=== PATIENT | male | born 1945 | race Two or more races ===

== ENCOUNTER 2017-06-01 09:32 | Inpatient (IN) | payer OTHER, BC ==
[2017-05-29 12:19] VITALS: BMI 32.3
--- NOTE | 2017-06-01 07:44 | HP ---
Admitting History and Physical - Admission Chief Complaint: Left knee osteoarthritis x years History of Present Illness: 71 year old male presents in regard to his left knee. Longstanding history of left knee osteoarthritis. Patient complains of pain, limited ROM, difficulty ambulating and difficulty with ADLs. Patient has failed conservative treatment including PO medication, activity modification, injections and exercise program. At this point patient would like to proceed with a left total knee arthroplasty. History Source: Patient - Past Surgical History Additional Past Surgical History: See written H&P - Smoking History Smoking history: Never smoked Have you smoked in the past 12 months: No - Alcohol/Substance Use Hx Alcohol Use: Yes (SOCIALLY) Home Medications - Allergies Allergies/Adverse Reactions: Allergies Allergy/AdvReac Type Severity Reaction Status Date / Time No Known Drug Allergies Allergy Verified 05/29/17 12:11 - Home Medications Home Medications: Ambulatory Orders NK [No Known Home Medication] 05/29/17 Review of Systems - Review of Systems Musculoskeletal: reports: Crepitus (Left Knee), Decreased ROM (Left Knee), Joint Pain (Left Knee), Joint Swelling (Left Knee) Physical Examination Constitutional: Yes: Well Nourished, No Distress Eyes: Yes: Conjunctiva Clear HENT: Yes: Atraumatic, Normocephalic Neck: Yes: Supple Cardiovascular: Yes: Regular Rate and Rhythm Respiratory: Yes: Regular Gastrointestinal: Yes: Soft ...Rectal Exam: Yes: Deferred Musculoskeletal: Yes: Joint Stiffness (Left Knee), Joint Swelling (Left Knee) Assessment/Plan 71 year old male with longstanding left knee osteoarthritis. Patient complains of pain, limited ROM, difficulty ambulating and difficulty completing ADLs. Patient has failed conservative treatment options. Proceed with a left total knee arthroplasty.
[~2017-06-01 09:32] MED LIST: PANTOPRAZOLE 40 MG TABLET (FP) PO ONE
[2017-06-01] MEDS ORDERED: oxyCODONE HCL 10 MG SUSTAINED ACTING TABLET PO ONE (09:55)
[2017-06-01] MEDS ORDERED: GABAPENTIN 300 MG CAPSULE (FP) PO ONE (09:55)
[2017-06-01] MEDS ORDERED: TRANEXAMIC ACID 1000 MG/10 ML VIAL IVPUSH ONE (09:55)
[2017-06-01] MEDS ORDERED: ROPIVICAINE 0.2%/MORPH PF/KETOROLAC - 51ML DISP.SYRINGE IA ONE ×2 (09:55→11:07)
[2017-06-01] MEDS ORDERED: CELECOXIB 200 MG CAPSULE PO ONE (09:55)
[2017-06-01] MEDS ORDERED: CEFAZOLIN 2 GM in DEXTROSE 5%-WATER - 50 ML IVPB ONE (09:55)
[2017-06-01] MEDS ORDERED: PANTOPRAZOLE 40 MG TABLET (FP) ONE (10:00)
[2017-06-01] MEDS ORDERED: DEXAMETHASONE SOD PHOSPHATE/PF 10 MG/ML SDV ONE (10:19)
[2017-06-01] MEDS ORDERED: MIDAZOLAM HCL 2 MG/2 ML SINGLE DOSE VIAL ONE ×2 (10:19→12:05)
[2017-06-01] MEDS ORDERED: VANCOMYCIN 1,000 MG VIAL (RESTRICTED TO ID ONLY) ONE (11:07)
[2017-06-01] MEDS ORDERED: ceFAZolin SODIUM 1 GM VIAL ONE ×2 (11:07→11:34)
[2017-06-01] MEDS ORDERED: TRANEXAMIC ACID 1000 MG/10 ML VIAL ONE ×2 (11:07→11:34)
[2017-06-01] MEDS ORDERED: BUPIVACAINE HCL/PF 0.5% (5MG/ML) 10 ML VIAL ONE (11:33)
[2017-06-01] MEDS ORDERED: ONDANSETRON 4 MG/2 ML VIAL ONE (11:34)
[2017-06-01] MEDS ORDERED: DEXAMETHASONE SOD PHOSPHATE 4 MG/1 ML VIAL ONE (11:34)
[2017-06-01] MEDS ORDERED: oxyCODONE HCL 5 MG TABLET PO PRN (14:35)
[2017-06-01] MEDS ORDERED: ONDANSETRON 4 MG/2 ML VIAL IVPUSH PRN (14:35)
[2017-06-01] MEDS ORDERED: KETOROLAC TROMETHAMINE 30 MG/1 ML VIAL ONE (14:49)
[2017-06-01] MEDS ORDERED: traMADol HCL 50 MG TABLET ONE (14:49)
[2017-06-01] MEDS ORDERED: ACETAMINOPHEN INJECTION 100 ML IVPB ONE (14:50)
[2017-06-01] MEDS ORDERED: MAGNESIUM HYDROX 2400MG/30ML ORAL SUSPENSION 30 ML CUP PO PRN (15:17)
[2017-06-01] MEDS ORDERED: ONDANSETRON 4 MG/2 ML VIAL IVPB PRN (15:17)
[2017-06-01] MEDS ORDERED: MAG HYDROX/AL HYDROX/SIMETH 30 ML UNIT-DOSE CUP PO PRN (15:17)
--- NOTE | 2017-06-01 15:17 | OP ---
Operative Note - Note: Operative Date: 06/01/17 Pre-Operative Diagnosis: left knee OA Operation: left TKA Surgeon: Flex Cooley Permit Specialist: Lashae Rios Anesthesia: Spinal Estimated Blood Loss (mls): 150
[2017-06-01] MEDS ORDERED: LACTATED RINGERS SOLUTION 1,000 ML IV SCH (15:30)
[2017-06-01] MEDS: ACETAMINOPHEN 1000 MG/100 ML VIAL (NON FORMULARY) IVPB ONE ×2 (15:30→16:49)
[2017-06-01] MEDS: traMADol HCL 50 MG TABLET PO SCH ×3 (15:31→22:23)
[2017-06-01] MEDS: KETOROLAC TROMETHAMINE 30 MG/1 ML VIAL IVPUSH SCH ×3 (15:31→22:24)
[2017-06-01] MEDS: LACTATED RINGERS SOLUTION 1,000 ML IV SCH (16:49)
[2017-06-01] MEDS ORDERED: CEFAZOLIN 2 GM in DEXTROSE 5%-WATER - 50 ML IVPB SCH (18:00)
[2017-06-01] MEDS ORDERED: CEFAZOLIN (PRE-DOCKED) 50 ML IVPB SCH (18:00)
[2017-06-01] MEDS: CEFAZOLIN 2 GM/D5W 50 ML IVPB SCH (18:00)
[2017-06-01] MEDS: ACETAMINOPHEN 325 MG TABLET (FP) PO SCH (18:01)
[2017-06-01] MEDS: GABAPENTIN 300 MG CAPSULE (FP) PO SCH (22:23)
[2017-06-01] MEDS: SENNOSIDES/DOCUSATE COMBO (SENNA PLUS) TABLET (UD) PO SCH (22:23)
[2017-06-01] MEDS: ASCORBIC ACID 500 MG TABLET (FP) PO SCH (22:23)
[2017-06-02] MEDS: ACETAMINOPHEN 325 MG TABLET (FP) PO SCH ×5 (00:01→23:58)
[2017-06-02] MEDS: KETOROLAC TROMETHAMINE 30 MG/1 ML VIAL IVPUSH SCH ×2 (03:35→09:24)
[2017-06-02] MEDS: traMADol HCL 50 MG TABLET PO SCH ×4 (03:36→21:09)
[2017-06-02] MEDS: CEFAZOLIN 2 GM/D5W 50 ML IVPB SCH (03:36)
[2017-06-02] MEDS: ASPIRIN 325 MG TABLET PO SCH (08:20)
[2017-06-02 08:42] LABS: MCH 31.7 pg (25.7-33.7); MCHC 33.7 g/dl (32.0-35.9); MEAN CELL VOLUME 94.1 fl (80-96); MEAN PLT VOLUME 9.5 fl (7.5-11.1); PLATELET COUNT 167 K/MM3 (134-434); RDW 12.9 % (11.9-15.9); WHITE BLOOD COUNT 11.5 K/mm3 (4.0-10.8)
[2017-06-02 09:10] LABS: ANION GAP 7 (8-16); CALCIUM 8.7 mg/dl (8.4-10.2); CO2 24 mmol/L (22-28); GLUCOSE,RANDOM 132 mg/dl (74-106)
--- NOTE | 2017-06-02 09:21 | PN ---
Progress Note (short form) - Note Progress Note: ANESTHESIOLOGY POST OP 71 yo male POD #1 s/p Left TKA. Patient doing well. Reports no pain. He is actively participating in PT. Tolerating PO. Plans to d/c to rehab facility this weekend. Continue current care.
[2017-06-02] MEDS: CELECOXIB 200 MG CAPSULE PO SCH (09:24)
[2017-06-02] MEDS: GABAPENTIN 300 MG CAPSULE (FP) PO SCH ×2 (09:24→21:09)
[2017-06-02] MEDS: MULTIVITAMINS (DAILY MVI) TABLET (FP) PO SCH (09:25)
[2017-06-02] MEDS: ASCORBIC ACID 500 MG TABLET (FP) PO SCH ×2 (09:25→21:09)
[2017-06-02] MEDS: PANTOPRAZOLE 40 MG TABLET (FP) PO SCH (09:26)
[2017-06-02] MEDS: SENNOSIDES/DOCUSATE COMBO (SENNA PLUS) TABLET (UD) PO SCH ×2 (09:26→21:09)
[2017-06-02] MEDS: LACTATED RINGERS SOLUTION 1,000 ML IV SCH (14:50)
--- NOTE | 2017-06-02 19:35 | PN ---
Progress Note (short form) - Note Progress Note: D/C to rehab Monday when bed available. I will be out of town this weekend and not coming in to round - I explained this to the patient and he understood. All discharge and medication orders are in. Call me on my cell phone at [phone] if there are any issues over the weekend. Otherwise pt is cleared to go. If there are any medical concerns please call me and also place a hospitalist consult. Thanks - MARIA G
--- NOTE | 2017-06-02 19:35 | PN ---
Progress Note (short form) - Note Progress Note: Pt seen and examined. Doing very well. AVSS Selected Entries 06/02/17 06/02/17 06/02/17 06:22 07:30 14:20 Temperature 98.0 F 97.8 F Pulse Rate 67 59 L Respiratory 20 18 Rate Blood Pressure 103/54 119/55 O2 Sat by Pulse 96 98 Oximetry (%) Oxygen Delivery Room Air Room Air Method Laboratory Tests 06/02/17 06/02/17 07:30 07:30 WBC 11.5 H Hgb 14.7 Hct 43.7 Plt Count 167 Sodium 135 L Potassium 4.5 Chloride 104 Carbon Dioxide 24 Anion Gap 7 L BUN 20 H Creatinine 1.0 Random Glucose 132 H Calcium 8.7 Gen: NAD LLE: c/d/i, NVID A/P 71yo male POD#1 s/p L TKA 1. PT/OOB - WBAT LLE 2. D/C to rehab Monday when bed available. I will be out of town this weekend and not coming in to round - I explained this to the patient and he understood. All discharge and medication orders are in. Call me on my cell phone at if there are any issues over the weekend. Otherwise pt is cleared to go. If there are any medical concerns please call me and also place a hospitalist consult. Thanks - MARIA G
--- NOTE | 2017-06-02 19:36 | DS ---
Physical Examination Vital Signs: Vital Signs Temperature 97.8 F 06/02/17 14:20 Pulse Rate 59 L 06/02/17 14:20 Respiratory Rate 18 06/02/17 14:20 Blood Pressure 119/55 06/02/17 14:20 O2 Sat by Pulse Oximetry (%) 98 06/02/17 14:20 Labs: CBC, BMP 06/02/17 07:30 06/02/17 07:30 Discharge Summary Reason For Visit: OSTEOARTHRITIS LEFT KNEE Current Active Problems Osteoarthritis of left knee (Acute) Procedures: Principal: left TKA Hospital Course: Admitted for elective surgery. Procedure performed without complications. Pt received postoperative antibiotic prophylaxis and DVT ppx. Ambulated with physical therapy. Stable for discharge to rehab/SNF with outpatient followup in 10-14 days. Condition: Stable - Instructions Diet, Activity, Other Instructions: Dr. Cooley - Knee Replacement Instructions Keep the Aquacel dressing on until removed by Dr. Cooley in 10-14 days - it is antibacterial and waterproof and you can shower with it on. Call the office for a follow-up appointment with Dr. Cooley in 10-14 days. Take one Aspirin 325mg daily for 6 weeks to prevent blood clots in your legs. Take one Pantoprazole 40mg daily for 6 weeks to protect against heartburn and ulcers. Take Celebrex 200mg once daily for 30 days to reduce swelling and inflammation. Take a multivitamin, extra vitamin c supplement, and stool softener daily. For pain: The nerve block injection performed before surgery lasts for about 3 days. When this wears off Monday the pain will increase. *Mild pain (1-3/10): Take 1 Tramadol tablet every 4 hours as needed. Moderate pain (4-6/10): Take 1 Tramadol tablet and 1 Percocet tablet every 4 hours as needed. Severe pain (7-10/10): Take 1 Tramadol tablet and 2 Percocet tablets every 4 hours as needed. Activity: You can put as much weight on the operative leg as you want. Right after you get home, there will be a physical therapist coming to your house to help you walk around and bend/straighten your knee. After your follow-up appointment, you will be sent for more intensive outpatient physical therapy which will include machines and equipment that the home therapist cannot bring to your house. Always use a walker or cane for balance and to prevent falls. Disposition: [facility] - Home Medications Comprehensive Discharge Medication List: Ambulatory Orders Ascorbic Acid [Vitamin C -] 500 mg PO BID #90 tablet 06/02/17 Aspirin [ASA -] 325 mg PO DAILY@0800 #40 tablet 06/02/17 Celecoxib [CeleBREX -] 200 mg PO DAILY #30 tab 06/02/17 Multivitamins [Multivit ([facility] Formulary)] 1 tab PO DAILY #90 tab 06/02/17 Oxycodone HCl/Acetaminophen [Percocet 5-325 mg Tablet] 1 - 2 tab PO Q4H PRN #60 tablet MDD 8 06/02/17 Pantoprazole Sodium [Protonix -] 40 mg PO DAILY #40 tab 06/02/17 Sennosides/Docusate Sodium [Pericolace -] 2 tablet PO BID tablet 06/02/17 Tramadol HCl [Ultram -] 50 mg PO Q4H PRN #90 tablet MDD 6 06/02/17
[2017-06-03] MEDS: traMADol HCL 50 MG TABLET PO SCH ×4 (02:46→21:44)
[2017-06-03] MEDS: ACETAMINOPHEN 325 MG TABLET (FP) PO SCH ×4 (06:19→23:47)
[2017-06-03 07:35] LABS: MCH 32.4 pg (25.7-33.7); MCHC 34.3 g/dl (32.0-35.9); MEAN CELL VOLUME 94.6 fl (80-96); MEAN PLT VOLUME 8.9 fl (7.5-11.1); PLATELET COUNT 135 K/MM3 (134-434); RDW 13.2 % (11.9-15.9); WHITE BLOOD COUNT 7.5 K/mm3 (4.0-10.8)
[2017-06-03 08:02] LABS: ANION GAP 3 (8-16); CALCIUM 8.4 mg/dl (8.4-10.2); CO2 28 mmol/L (22-28); GLUCOSE,RANDOM 125 mg/dl (74-106)
[2017-06-03] MEDS: ASPIRIN 325 MG TABLET PO SCH (08:10)
[2017-06-03] MEDS: SENNOSIDES/DOCUSATE COMBO (SENNA PLUS) TABLET (UD) PO SCH ×2 (09:36→21:45)
[2017-06-03] MEDS: PANTOPRAZOLE 40 MG TABLET (FP) PO SCH (09:37)
[2017-06-03] MEDS: GABAPENTIN 300 MG CAPSULE (FP) PO SCH ×3 (09:37→21:49)
[2017-06-03] MEDS: MULTIVITAMINS (DAILY MVI) TABLET (FP) PO SCH (09:37)
[2017-06-03] MEDS: ASCORBIC ACID 500 MG TABLET (FP) PO SCH ×2 (09:37→21:45)
[2017-06-03] MEDS: CELECOXIB 200 MG CAPSULE PO SCH (09:38)
[2017-06-03 21:47] VITALS: TEMP 98.7
[2017-06-03] MEDS: oxyCODONE HCL 5 MG TABLET PO PRN (23:46)
[2017-06-04] MEDS: traMADol HCL 50 MG TABLET PO SCH ×2 (03:30→09:24)
[2017-06-04 06:24] VITALS: BP 109/63; PULSE 77
[2017-06-04] MEDS: oxyCODONE HCL 5 MG TABLET PO PRN (06:44)
[2017-06-04] MEDS: ACETAMINOPHEN 325 MG TABLET (FP) PO SCH (06:45)
[2017-06-04] MEDS: PANTOPRAZOLE 40 MG TABLET (FP) PO SCH (09:23)
[2017-06-04] MEDS: ASPIRIN 325 MG TABLET PO SCH (09:23)
[2017-06-04] MEDS: MULTIVITAMINS (DAILY MVI) TABLET (FP) PO SCH (09:23)
[2017-06-04] MEDS: SENNOSIDES/DOCUSATE COMBO (SENNA PLUS) TABLET (UD) PO SCH (09:23)
[2017-06-04] MEDS: ASCORBIC ACID 500 MG TABLET (FP) PO SCH (09:23)
[2017-06-04] MEDS: GABAPENTIN 300 MG CAPSULE (FP) PO SCH (09:24)
[2017-06-04] MEDS: LACTATED RINGERS SOLUTION 1,000 ML IV SCH (09:24)
[2017-06-04] MEDS: CELECOXIB 200 MG CAPSULE PO SCH (09:25)
--- NOTE | 2017-06-05 14:04 | PATH ---
Surgical Pathology Report Patient Name: KAREN GRIFFITHS Med. Rec. #: [id number] /Age/Gender: 1945 (Age: 71) / M Account: [id number] Location: [facility] Taken: 06/01/2017 Received: 06/02/2017 Reported: 06/05/2017 Physicians: Flex Cooley M.D. Specimen(s) Received BONE LEFT KNEE Clinical History Left knee osteoarthritis Final Diagnosis BONE AND SOFT TISSUE, LEFT KNEE, REPLACEMENT: DEGENERATIVE JOINT DISEASE. Electronically Signed Homer Coello M.D. Gross Description The specimen is received in formalin, labeled "bone left knee" and consists of multiple irregular portions of bone from a knee joint admixed with irregular portions of mares-yellow adipose tissue, synovial tissue and fibrocartilage. The specimen measures 10.0 x 8.5 x 1.8 cm. in aggregate. The tibial plateau and portions of the femoral condyles are identified. They show mares-kaur to light yellow eroded and granular articular surfaces. The cut surfaces are light yellow and show hard trabecular bone. Front End Assistant sections are submitted in one cassette after decalcification. AF/06/02/2017 final/06/02/2017
== END 2017-06-04 11:10 | DRG 470 ==
LOC: FM/S 09:32
PROVIDERS: ADMIT Student in an Organized Health Care Education/Training Program; ATTEND Student in an Organized Health Care Education/Training Program
PROC: 0SRD0J9 Replacement of Left Knee Joint with Synthetic Substitute, Cemented, Open Approach (ICD-10-PCS; principal; 2017-06-01 12:19)
DX: M17.12 Unilateral primary osteoarthritis, left knee (principal); H91.8X9 Other specified hearing loss, unspecified ear
CPT/HCPCS: 36415; 73560-TC-LT; 80048; 85027; 88304-TC; 88311-TC; 94010; 94760; 97010-GP; 97116-GP; 97161-GP

== ENCOUNTER 2020-06-08 06:09 | Inpatient (IN) | payer OTHER, BC ==
[2020-06-03 13:21] VITALS: BMI 32.3
[~2020-06-08 06:09] MED LIST changes: +CEFAZOLIN 2 GM/D5W 2 GM/50 ML ML IVPB ONE; +CELECOXIB 200 MG CAPSULE PO ONE; -PANTOPRAZOLE 40 MG TABLET (FP) PO ONE; +PANTOPRAZOLE 40 MG TABLET PO ONE; +TRANEXAMIC ACID 1000 MG/10 ML VIAL IVPUSH ONE; +oxyCODONE HCL 10 MG SUSTAINED ACTING TABLET PO ONE
[2020-06-08] MEDS ORDERED: TRANEXAMIC ACID 1000 MG/10 ML VIAL ONE ×3 (06:55→12:23)
[2020-06-08] MEDS ORDERED: ceFAZolin SODIUM 1 GM VIAL ONE ×2 (06:55→09:39)
[2020-06-08] MEDS ORDERED: VANCOMYCIN 1,000 MG VIAL (RESTRICTED TO ID ONLY) ONE (06:55)
[2020-06-08] MEDS ORDERED: MIDAZOLAM HCL 2 MG/2 ML SINGLE DOSE VIAL ONE (07:23)
[2020-06-08] MEDS ORDERED: oxyCODONE HCL 10 MG SUSTAINED ACTING TABLET ONE (07:24)
[2020-06-08] MEDS ORDERED: SODIUM CHLORIDE 0.9% P/F 10 ML VIAL IJ ONE (07:24)
[2020-06-08] MEDS ORDERED: PANTOPRAZOLE 40 MG TABLET ONE (07:24)
[2020-06-08] MEDS ORDERED: BUPIVACAINE LIPOSOME/PF (EXPAREL) 266 MG/20 ML VIAL ONE (07:24)
[2020-06-08] MEDS ORDERED: CELECOXIB 200 MG CAPSULE ONE (07:25)
--- NOTE | 2020-06-08 07:50 | HP ---
Admitting History and Physical - Admission Chief Complaint: Right knee osteoarthritis x years History of Present Illness: 74 year old male presents in regard to their right knee. Long-standing history of right knee osteoarthritis. Patient complains of pain, limited range of motion, difficulty ambulating, and difficulty with activities of daily living. Patient has failed conservative treatment options including PO medications, activity modification, injections, and exercise programs. Radiographs revealed severe osteoarthritis of the right knee joint. As the patient has failed all conservative treatment measures, the patient chose to proceed with surgical intervention, right total knee arthroplasty MAKOplasty. History Source: Patient - Past Medical History Cardiovascular: Yes: CHF (Systolic HF, EF 27%), HTN Renal/: Yes: BPH Musculoskeletal: Yes: Osteoarthritis - Past Surgical History Additional Past Surgical History: See written history and physical. right ear surgery x 2 right hand surgery left TKR 2017 - Smoking History Smoking history: Current every day smoker Have you smoked in the past 12 months: Yes Aproximately how many cigarettes per day: 3 - Alcohol/Substance Use Hx Alcohol Use: Yes (SOCIALLY-HAS BEEN IN DR AND) Home Medications - Allergies Allergies/Adverse Reactions: Allergies Allergy/AdvReac Type Severity Reaction Status Date / Time No Known Drug Allergies Allergy Verified 06/03/20 12:54 - Home Medications Home Medications: Ambulatory Orders Entresto 24 mg-26 mg Tablet 1 tab PO BID 06/03/20 Furosemide 40 mg PO DAILY 06/03/20 Metoprolol Succinate [Toprol Xl] 100 mg PO BID 06/03/20 Review of Systems - Review of Systems Musculoskeletal: reports: Crepitus (right knee), Decreased ROM (right knee), Joint Pain (right kne), Joint Swelling (right knee) Physical Examination Vital Signs: Vital Signs Temperature 97.7 F 06/08/20 07:20 Pulse Rate 41 L 06/08/20 07:20 Respiratory Rate 15 06/08/20 07:20 Blood Pressure 132/76 06/08/20 07:20 O2 Sat by Pulse Oximetry (%) 97 06/08/20 07:20 Constitutional: Yes: Well Nourished Eyes: Yes: Conjunctiva Clear HENT: Yes: Atraumatic Neck: Yes: Supple Cardiovascular: Yes: Regular Rate and Rhythm Respiratory: Yes: Regular Gastrointestinal: Yes: Soft ...Rectal Exam: Yes: Deferred Musculoskeletal: Yes: Joint Stiffness (right knee), Joint Swelling (right knee), Other (Limited ROM right knee) Assessment/Plan 74 year old male presents in regard to their right knee. Long-standing history of right knee osteoarthritis. Patient complains of pain, limited range of motion, difficulty ambulating, and difficulty with activities of daily living. Patient has failed conservative treatment options including PO medications, activity modification, injections, and exercise programs. Radiographs revealed severe osteoarthritis of the right knee joint. As the patient has failed all conservative treatment measures, the patient chose to proceed with surgical intervention, right total knee arthroplasty Pros, cons, risks, benefits, and alternatives of a right total knee arthroplasty MAKOplasty were discussed with the patient at length. Patient confirms their understanding and consents to proceed with a right total knee arthroplasty MAKOplasty
[2020-06-08] MEDS ORDERED: PROPOFOL 20 ML ONE ×2 (09:27→11:43)
[2020-06-08] MEDS ORDERED: ePHEDrine SULFATE 50 MG/1 ML AMPULE ONE (09:36)
[2020-06-08] MEDS ORDERED: DEXAMETHASONE SOD PHOSPHATE 4 MG/1 ML VIAL ONE (09:57)
[2020-06-08] MEDS ORDERED: ONDANSETRON 4 MG/2 ML VIAL ONE (09:57)
[2020-06-08] MEDS ORDERED: BUPIVICAINE 0.25%/MORPH PF/KETOROLAC - 51ML DISP.SYRINGE IA ONE ×2 (11:28→12:06)
[2020-06-08] MEDS ORDERED: SUCCINYLCHOLINE CHLORIDE 200 MG/10 ML SYRINGE ONE (11:43)
[2020-06-08] MEDS ORDERED: TRANEXAMIC ACID 1000 MG/10 ML VIAL IVPUSH ONE (11:54)
[2020-06-08] MEDS ORDERED: VANCOMYCIN 1,000 MG VIAL (RESTRICTED TO ID ONLY) IVPB ONE (12:05)
[2020-06-08] MEDS ORDERED: ONDANSETRON 4 MG/2 ML VIAL IVPUSH PRN ×2 (13:03→13:54)
[2020-06-08] MEDS ORDERED: oxyCODONE HCL 5 MG TABLET PO PRN ×2 (13:03)
--- NOTE | 2020-06-08 13:49 | OP ---
Operative Note - Note: Operative Date: 06/08/20 Pre-Operative Diagnosis: Right knee OA Operation: Right SHARON TKA Post-Operative Diagnosis: Same as Pre-op Surgeon: Flex Cooley Welding Machine Operator Friction: Lashae Rios Anesthesia: Spinal Estimated Blood Loss (mls): 150
[2020-06-08] MEDS ORDERED: MAGNESIUM HYDROX 2400MG/30ML ORAL SUSPENSION 30 ML CUP PO PRN (13:54)
[2020-06-08] MEDS ORDERED: MAG HYDROX/AL HYDROX/SIMETH 30 ML UNIT-DOSE CUP PO PRN (13:54)
[2020-06-08] MEDS: KETOROLAC TROMETHAMINE 30 MG/1 ML VIAL IVPUSH SCH ×2 (14:00→20:14)
[2020-06-08] MEDS ORDERED: LACTATED RINGERS SOLUTION 1,000 ML IV SCH (14:00)
[2020-06-08] MEDS ORDERED: KETOROLAC TROMETHAMINE 30 MG/1 ML VIAL ONE (14:01)
[2020-06-08] MEDS ORDERED: ACETAMINOPHEN INJECTION 100 ML IVPB ONE (14:02)
[2020-06-08] MEDS ORDERED: traMADol HCL 50 MG TABLET ONE (14:02)
[2020-06-08] MEDS: ACETAMINOPHEN 1000 MG/100 ML VIAL (NON FORMULARY) IVPB ONE (14:04)
[2020-06-08] MEDS: traMADol HCL 50 MG TABLET PO SCH ×2 (14:05→20:14)
--- NOTE | 2020-06-08 14:26 | SPEC ---
DATE OF OPERATION: 06/08/2020 PREOPERATIVE DIAGNOSIS: Right knee osteoarthritis. POSTOPERATIVE DIAGNOSIS: Right knee osteoarthritis. PROCEDURE: Right total knee replacement with MAKOplasty robotic navigation. ATTENDING: Nickolas Montero MD [employer] ARTILLERY: POP Patel ANESTHESIA: Spinal plus sedation. ESTIMATED BLOOD LOSS: 150 mL. COMPLICATIONS: None. DISPOSITION: The patient was transferred to the PACU in stable condition. IMPLANTS USED: James Triathlon size 5 femoral component, size 6 tibial component, 32-mm patellar component, 13-mm posterior stabilized polyethylene component. INDICATIONS: This is a 74-year-old male who is a long-time patient of [facility] who initially presented with bilateral knee osteoarthritis. This was treated conservatively until he had inadequate pain control and worsening ambulatory function. He underwent a left total knee replacement in 2017 and did very well with that. The right one continues to deteriorate and recently he decided to proceed with a knee replacement on the right side as well. The risks, benefits and alternatives to the procedure were explained to the patient in great detail and he elected to proceed with the surgery. DESCRIPTION: On the day of surgery, the patient was taken to the operating room and placed on the OR table. Spinal anesthesia was administered by the anesthesiologist. The patient was then positioned supine on the table and all bony prominences were padded. The knee was then prepped and draped in the usual sterile fashion and intravenous antibiotics were given for infection prophylaxis. A surgical time-out was then performed with the team, and the patients identity, procedure, side, availability of implants, and the administration of antibiotics was confirmed. With the knee flexed, a midline incision was made and carried down through the subcutaneous fat to the underlying retinaculum. A medial parapatellar arthrotomy was performed. This was followed by a subperiosteal dissection of the tissue off the proximal, medial tibia. A portion of fat pad was removed from under the patellar tendon, and a small portion of fat was excised off the distal supracondylar femur. Electrocautery and an Aqu[employer]ant[employer] bipolar sealing device were used to achieve hemostasis. The knee was then flexed further and the anterior horn of the lateral meniscus was released from the midline. Next, the anterior and posterior cruciate ligaments were transected. Grade 4 changes were noted diffusely throughout the knee. Femoral and tibial checkpoints were then placed in the appropriate location using a mallet. Two parallel bicortical self-drilling pins were placed in the tibial diaphysis after making stab incisions and bluntly dissecting down to bone. Two pins were then placed in the distal supracondylar femur. The [employer] navigation arrays were then attached to both the femoral and tibial pins and the lower extremity was then registered to the robotic navigation device using various joint movements, as well as inputting several dozen reference points. The knee was then taken through a full range of motion with a corrective force applied. Alignment in varus/valgus as well as flexion/extension and soft tissue balance was measured in various positions. The navigation device showed a numerical and graphic representation of the soft tissue balance. The components were repositioned virtually using the software until optimal soft tissue balance was achieved on screen. Once this was accomplished, the final plan was saved and sent to the robot. Self-retaining retractors were then placed at the joint line for exposure and protection of the collateral ligaments. The robot was brought into the sterile field and registered with the navigation device. The robotic arm with attached oscillating saw blade was then used to perform femoral and tibial bone cuts as per the saved software plan. The femoral box cut was made using the appropriately sized manual cutting guide. The knee was then irrigated. Trial components were placed and the knee was taken through a full range of motion to assess soft tissue balance and alignment. The range of motion was found to be excellent and the soft tissue balance was optimal and according to plan. The knee was then put into extension and the patella everted. The synovium around the patella was circumscribed with electrocautery. A caliper was used to measure the patellar thickness and a saw was then used to resect the patella at the chondro-osseous junction. The cut surface was then sized and drilled for the appropriate patellar button, with care taken to medialize it. A trial patella was then placed and the knee was again taken through a full range of motion. The knee was found to have both good balance and good patellar tracking. All of the components were removed except the tibial base plate. The appropriate instrumentation was used to drill and punch the proximal tibia for the keel of the final component. All bony surfaces were then cleaned with pulsatile lavage and dried. Bone cement was then prepared on the back table, and final components were cemented in place in the usual fashion. Extruded cement was removed. The polyethylene trial was placed, the knee was put into extension, and axial pressure was applied for compression while the cement hardened. The patellar button was similarly cemented into place. Once the cement had hardened, the knee was taken through a full range of motion to assess stability, balance, and patellar tracking. This was found to be optimal and the trial polyethylene was exchanged for the appropriately sized real implant. The wound was then thoroughly irrigated with normal saline. A 3-minute dilute Betadine lavage was performed. The knee was again irrigated using a pulsatile lavage device. A periarticular injection was used to locally infiltrate the capsular tissues surrounding the implant and prosthesis. Then No. 1 Polysorb and 0 VLoc 180 barbed sutures were used to close the arthrotomy. Then No. 1 Polysorb and 2-0 VLoc 90 sutures were used in the subcutaneous tissues. Then 4-0 undyed Vicryl and Dermabond skin adhesive was used to close the stab incisions made for the navigation pins. The skin was closed using both 3-0 VLoc 90 suture in a running subcuticular fashion and Dermabond skin adhesive. Once this was completed a sterile Aquacel dressing and compressive Yaw-wrap was applied. The patient was then awakened and taken to the PACU in stable condition. NICKOLAS MONTERO M.D. [id number]
[2020-06-08] MEDS ORDERED: DEXAMETHASONE SOD PHOSPHATE 10 MG/1 ML VIAL IVPB ONE (20:00)
[2020-06-08] MEDS: ACETAMINOPHEN 325 MG TABLET (FP) PO SCH (20:15)
[2020-06-08] MEDS: CEFAZOLIN 2 GM/D5W 2 GM/50 ML ML IVPB SCH (20:17)
[2020-06-08] MEDS: CELECOXIB 200 MG CAPSULE PO SCH (21:45)
[2020-06-08] MEDS: SACUBITRIL/VALSARTAN 24 MG-26 MG TABLET PO SCH (21:45)
[2020-06-08] MEDS: GABAPENTIN 300 MG CAPSULE PO SCH (21:45)
[2020-06-08] MEDS: SENNOSIDES/DOCUSATE COMBO (SENNA PLUS) TABLET (UD) PO SCH (21:45)
[2020-06-08] MEDS: ASCORBIC ACID 500 MG TABLET (FP) PO SCH (21:45)
[2020-06-09] MEDS: CEFAZOLIN 2 GM/D5W 2 GM/50 ML ML IVPB SCH ×2 (01:10→10:39)
[2020-06-09] MEDS: KETOROLAC TROMETHAMINE 30 MG/1 ML VIAL IVPUSH SCH ×2 (01:10→08:58)
[2020-06-09] MEDS: traMADol HCL 50 MG TABLET PO SCH ×4 (01:11→21:04)
[2020-06-09] MEDS: ACETAMINOPHEN 325 MG TABLET (FP) PO SCH ×6 (01:12→18:31)
[2020-06-09 08:00] LABS: HEMATOCRIT 39.9 % (35.4-49); HEMOGLOBIN 12.7 GM/dl (11.7-16.9); MCH 30.8 pg (25.7-33.7); MCHC 31.8 g/dl (32.0-35.9); MEAN PLT VOLUME 10.2 fl (7.5-11.1); PLATELET COUNT 177 K/MM3 (134-434); RBC 4.11 M/mm3 (4.00-5.60); RDW 13.6 % (11.9-15.9); WHITE BLOOD COUNT 10.7 K/mm3 (4.0-10.8)
[2020-06-09 08:07] LABS: CALCIUM 8.5 mg/dl (8.5-10); CREATININE 1.2 mg/dl (0.55-1.3); POTASSIUM 5.4 mmol/L (3.5-5.1)
[2020-06-09] MEDS: ASPIRIN 325 MG TABLET PO SCH (08:58)
[2020-06-09] MEDS: FUROSEMIDE 40 MG TABLET (FP) PO SCH (10:36)
[2020-06-09] MEDS: ASCORBIC ACID 500 MG TABLET (FP) PO SCH ×2 (10:36→21:05)
[2020-06-09] MEDS: MULTIVITAMINS (DAILY MVI) TABLET (FP) PO SCH (10:36)
[2020-06-09] MEDS: SENNOSIDES/DOCUSATE COMBO (SENNA PLUS) TABLET (UD) PO SCH ×2 (10:36→21:05)
[2020-06-09] MEDS: SACUBITRIL/VALSARTAN 24 MG-26 MG TABLET PO SCH ×2 (10:37→21:04)
[2020-06-09] MEDS: CELECOXIB 200 MG CAPSULE PO SCH ×2 (10:37→21:04)
[2020-06-09] MEDS: GABAPENTIN 300 MG CAPSULE PO SCH ×2 (10:37→21:04)
[2020-06-09] MEDS: PANTOPRAZOLE 40 MG TABLET PO SCH (10:40)
--- NOTE | 2020-06-09 12:58 | PN ---
Progress Note (short form) - Note Progress Note: 74M POD1 R TKR under spinal anesthetic with peripheral nerve blocks. Pt states that pain is well controlled and reports no anesthetic complications. AVSS. Continue current regimen.
[2020-06-09] MEDS: ACETAMINOPHEN 1000 MG/100 ML VIAL (NON FORMULARY) IVPB ONE (18:07)
--- NOTE | 2020-06-09 23:10 | PN ---
Progress Note (short form) - Note Progress Note: Pt seen and examined. Doing well. AVSS Selected Entries 06/09/20 22:00 Temperature 97.7 F Temperature Oral Source Pulse Rate 78 Respiratory 18 Rate Blood Pressure 101/44 L O2 Sat by Pulse 96 Oximetry (%) Laboratory Tests 06/09/20 06/09/20 07:10 07:10 WBC 10.7 Hgb 12.7 Hct 39.9 Plt Count 177 D Sodium 133 L Potassium 5.4 H Chloride 104 Carbon Dioxide 21 Anion Gap 8 BUN 25.0 H Creatinine 1.2 Est GFR (CKD-EPI)AfAm 68.15 Est GFR (CKD-EPI)NonAf 58.80 Random Glucose 153 H Calcium 8.5 Gen: NAD RLE: c/d/i, NVID A/P POD#1 s/p R SHARON TKA PT/OOB D/C planning to SNF/rehab
--- NOTE | 2020-06-09 23:16 | DS ---
Physical Examination Vital Signs: Vital Signs Temperature 97.7 F 06/09/20 22:00 Pulse Rate 78 06/09/20 22:00 Respiratory Rate 18 06/09/20 22:00 Blood Pressure 101/44 L 06/09/20 22:00 O2 Sat by Pulse Oximetry (%) 96 06/09/20 22:00 Labs: CBC, BMP 06/09/20 07:10 06/09/20 07:10 Discharge Summary Problems reviewed: Yes Reason For Visit: RIGHT KNEE OSTEOARTHRITIS Procedures: Principal: Right SHARON TKA Hospital Course: Admitted for elective surgery. Procedure performed without complications. Pt received postoperative antibiotic prophylaxis and DVT ppx. Ambulated with physical therapy. Stable for discharge to SNF with outpatient followup. Condition: Stable - Instructions Diet, Activity, Other Instructions: Dr. Coolye - Knee Replacement Instructions Keep the Aquacel dressing on until removed by Dr. Cooley in 2 weeks - it is antibacterial and waterproof and you can shower with it on. Call the office for a follow-up appointment with Dr. Cooley in 2 weeks. [phone] Take one Aspirin 325mg daily for 6 weeks to prevent blood clots in your legs. Take one Pantoprazole 40mg daily for 6 weeks to protect against heartburn and ulcers. Take Cephalexin (antibiotic) 3x/day for 10 days to help prevent skin infection. Take Celebrex 200mg daily for 30 days to reduce swelling and inflammation. Take a multivitamin, stool softener, and extra Vitamin C supplement daily. For pain: *Mild pain (1-3/10): Take 1 Tramadol tablet every 4 hours as needed. Moderate pain (4-6/10): Take 1 Tramadol tablet and 1 Percocet tablet every 4 hours as needed. Severe pain (7-10/10): Take 1 Tramadol tablet and 2 Percocet tablets every 4 hours as needed. Activity: You can put as much weight on the operative leg as you want. Right after you get home, there will be a physical therapist coming to your house to help you walk around and bend/straighten your knee. After your follow-up appointment, you will be sent for more intensive outpatient physical therapy which will include machines and equipment that the home thera pist cannot bring to your house. Always use a walker or cane for balance and to prevent falls. Expect to see swelling/bruising from the operative site all the way down to your toes. Wear the compression stocking on the operative side during the day to minimize how much swelling there is in your foot/ankle. Don't wear the stocking at night. You don't have to wear a stocking on the other side. [facility] - Home Medications Comprehensive Discharge Medication List: Ambulatory Orders Entresto 24 mg-26 mg Tablet 1 tab PO BID 06/03/20 Furosemide 40 mg PO DAILY 06/03/20 Metoprolol Succinate [Toprol Xl] 100 mg PO BID 06/03/20 Ascorbic Acid [Vitamin C -] 500 mg PO BID tablet 06/09/20 Aspirin [ASA -] 325 mg PO DAILY@0800 tablet 06/09/20 Celecoxib [CeleBREX -] 200 mg PO DAILY #30 capsule 06/09/20 Cephalexin Monohydrate [Keflex -] 500 mg PO TID #30 capsule 06/09/20 Multivitamins [Multivit ([facility] Formulary)] 1 tab PO DAILY tab 06/09/20 Oxycodone HCl/Acetaminophen [Percocet 5-325 mg Tablet] 1 - 2 tab PO Q4H PRN #60 tablet MDD 10 06/09/20 Pantoprazole Sodium [Protonix -] 40 mg PO DAILY #40 tablet.ec 06/09/20 Sennosides/Docusate Sodium [Pericolace -] 2 tablet PO BID tablet 06/09/20 traMADol HCL [Ultram -] 50 mg PO Q4H PRN #42 tablet MDD 6 06/09/20
[2020-06-10] MEDS: ACETAMINOPHEN 325 MG TABLET (FP) PO SCH ×4 (01:15→18:17)
[2020-06-10] MEDS: traMADol HCL 50 MG TABLET PO SCH ×4 (01:40→20:34)
[2020-06-10 08:15] LABS: CALCIUM 8.5 mg/dl (8.5-10); CREATININE 1.2 mg/dl (0.55-1.3); POTASSIUM 4.9 mmol/L (3.5-5.1)
[2020-06-10 08:19] LABS: HEMATOCRIT 35.3 % (35.4-49); HEMOGLOBIN 11.9 GM/dl (11.7-16.9); MCH 32.2 pg (25.7-33.7); MCHC 33.7 g/dl (32.0-35.9); MEAN CELL VOLUME 95.6 fl (80-96); PLATELET COUNT 140 K/MM3 (134-434); RBC 3.69 M/mm3 (4.00-5.60); RDW 13.3 % (11.9-15.9); WHITE BLOOD COUNT 10.4 K/mm3 (4.0-10.8)
[2020-06-10] MEDS: ASCORBIC ACID 500 MG TABLET (FP) PO SCH ×2 (09:48→22:05)
[2020-06-10] MEDS: CELECOXIB 200 MG CAPSULE PO SCH ×2 (09:49→22:03)
[2020-06-10] MEDS: ASPIRIN 325 MG TABLET PO SCH (09:49)
[2020-06-10] MEDS: GABAPENTIN 300 MG CAPSULE PO SCH ×2 (09:51→22:04)
[2020-06-10] MEDS: SENNOSIDES/DOCUSATE COMBO (SENNA PLUS) TABLET (UD) PO SCH ×2 (09:51→22:00)
[2020-06-10] MEDS: MULTIVITAMINS (DAILY MVI) TABLET (FP) PO SCH (09:51)
[2020-06-10] MEDS: PANTOPRAZOLE 40 MG TABLET PO SCH (09:51)
[2020-06-10] MEDS: SACUBITRIL/VALSARTAN 24 MG-26 MG TABLET PO SCH ×2 (09:56→22:04)
[2020-06-10] MEDS: FUROSEMIDE 40 MG TABLET (FP) PO SCH (09:58)
--- NOTE | 2020-06-10 14:38 | PATH ---
Surgical Pathology Report Patient Name: KAREN GRIFFITHS Med. Rec. #: [id number] /Age/Gender: 1945 (Age: 74) / M Account: [id number] Location: [facility] Taken: 06/08/2020 Received: 06/08/2020 Reported: 06/10/2020 Physicians: Flex Cooley M.D. Specimen(s) Received RIGHT KNEE BONES Clinical History Osteoarthritis right knee Final Diagnosis RIGHT KNEE BONES, RESECTION: DEGENERATIVE JOINT DISEASE, RIGHT KNEE. Electronically Signed Carmelita Holloway M.D. Gross Description Received in formalin labeled "right knee bones," is a 14.5 x 12.0 x 2.0 cm aggregate of multiple portions of bone and soft tissue. The tibial plateau measures 8.0 x 5.5 x 1.8 cm. There are multiple areas of eburnation present, measuring up to 2.2 cm in greatest dimension. The remaining articular surfaces are mares-brown and diffusely granular. The underlying trabecular bone is yellow and hard. Clinical Account Manager sections are submitted in one cassette, following decalcification. 06/09/2020 saudi06/09/2020
[2020-06-11] MEDS: traMADol HCL 50 MG TABLET PO SCH ×2 (01:37→09:52)
[2020-06-11] MEDS: ACETAMINOPHEN 325 MG TABLET (FP) PO SCH ×2 (01:38→06:47)
--- NOTE | 2020-06-11 05:48 | PN ---
Progress Note (short form) - Note Progress Note: Pt seen and examined. Doing well. Afebrile Selected Entries 06/11/20 06/11/20 06/11/20 02:00 06:00 09:40 Temperature 97.7 F 97.5 F L 98.5 F Pulse Rate 59 L 51 L 58 L Respiratory 18 18 18 Rate Blood Pressure 121/44 L 93/56 L 109/54 L O2 Sat by Pulse 98 96 97 Oximetry (%) Laboratory Tests 06/10/20 06/10/20 06:50 06:50 WBC 10.4 Hgb 11.9 Hct 35.3 L Plt Count 140 D Sodium 135 L Potassium 4.9 Chloride 106 Carbon Dioxide 24 Anion Gap 5 L BUN 29.0 H Creatinine 1.2 Est GFR (CKD-EPI)AfAm 68.15 Est GFR (CKD-EPI)NonAf 58.80 Random Glucose 119 H Calcium 8.5 Gen: NAD RLE: c/d/i, NVID A/P 74yo male s/p R SHARON TKA PT/OOB D/C to [facility] today. F/U in office in 2 weeks.
[2020-06-11 09:41] VITALS: BP 109/54; PULSE 58; TEMP 98.5
[2020-06-11] MEDS: FUROSEMIDE 40 MG TABLET (FP) PO SCH (09:49)
[2020-06-11] MEDS: CELECOXIB 200 MG CAPSULE PO SCH (09:51)
[2020-06-11] MEDS: MULTIVITAMINS (DAILY MVI) TABLET (FP) PO SCH (09:51)
[2020-06-11] MEDS: SACUBITRIL/VALSARTAN 24 MG-26 MG TABLET PO SCH (09:51)
[2020-06-11] MEDS: ASPIRIN 325 MG TABLET PO SCH (09:52)
[2020-06-11] MEDS: PANTOPRAZOLE 40 MG TABLET PO SCH (09:53)
[2020-06-11] MEDS: SENNOSIDES/DOCUSATE COMBO (SENNA PLUS) TABLET (UD) PO SCH (09:53)
[2020-06-11] MEDS: GABAPENTIN 300 MG CAPSULE PO SCH (09:53)
[2020-06-11] MEDS: ASCORBIC ACID 500 MG TABLET (FP) PO SCH (09:53)
== END 2020-06-11 12:00 | DRG 470 ==
LOC: FM/S 06:09
PROVIDERS: ADMIT Student in an Organized Health Care Education/Training Program; ATTEND Student in an Organized Health Care Education/Training Program
PROC: 8E0Y0CZ Robotic Assisted Procedure of Lower Extremity, Open Approach (ICD-10-PCS; 2020-06-08)
PROC: 0SRC0J9 Replacement of Right Knee Joint with Synthetic Substitute, Cemented, Open Approach (ICD-10-PCS; principal; 2020-06-08 10:02)
DX: M17.11 Unilateral primary osteoarthritis, right knee (principal); I50.22 Chronic systolic (congestive) heart failure; I11.0 Hypertensive heart disease with heart failure; N40.0 Benign prostatic hyperplasia without lower urinary tract symptoms; F17.210 Nicotine dependence, cigarettes, uncomplicated
CPT/HCPCS: 36415; 73560-TC-RT-FY; 80048; 85027; 88304-TC; 88311-TC; 94760; 97116-GP; 97163-GP; J0131; J1100